=== PATIENT | female | born 1985 | race Caucasian/White ===

== ENCOUNTER 2021-09-06 17:15 | Emergency (ER) | payer SELFPAY ==
--- NOTE | 2021-09-06 18:17 | RAD REPORT ---
EXAM DESCRIPTION: RAD - Thoracic Spine Ap/Lat - 09/06/2021 6:04 pm CLINICAL HISTORY: PAIN COMPARISON: No comparisonsNo comparisons FINDINGS: No acute fracture. No malalignment. No significant focal degenerative changes. IMPRESSION: No acute osseous abnormality involving the thoracic spine.
--- NOTE | 2021-09-06 18:17 | RAD REPORT ---
EXAM DESCRIPTION: RAD - Lumbar Spine 3 Views - 09/06/2021 6:03 pm CLINICAL HISTORY: PAIN COMPARISON: <Comparisons> FINDINGS: No acute fracture. No malalignment. No significant focal degenerative changes. IMPRESSION: No acute osseous abnormality involving the lumbar spine.
[2021-09-06] MEDS ORDERED: KETOROLAC 30 MG/ML INJ ONE (19:07)
[2021-09-06] MEDS ORDERED: CYCLOBENZAPRINE 10 MG TAB ONE (19:07)
--- NOTE | 2021-09-06 19:13 | ER ---
Nurse's Notes [facility] Name: Gogo Mendez Age: 36 yrs Sex: Female : 1985 Arrival Date: 09/06/2021 Time: 17:16 Bed 10 Private MD: Diagnosis: Sprain of ligaments of thoracic spine;Sprain of ligaments of lumbar spine Presentation: 09/06 17:36 Chief complaint: Patient states: "4 days ago my daughter fell and I turned around real ab2 fast and I fell too." Pt c/o back pain. Pt states she did hit her head and is unsure of LOC. Coronavirus screen: Vaccine status: Patient reports being unvaccinated. Client denies travel out of the [place] in the last 14 days. At this time, the client does not indicate any symptoms associated with coronavirus-19. Ebola Screen: Patient negative for fever greater than or equal to 101.5 degrees Fahrenheit, and additional compatible Ebola Virus Disease symptoms Patient denies exposure to infectious person. Patient denies travel to an Ebola-affected area in the 21 days before illness onset. No symptoms or risks identified at this time. Initial Sepsis Screen: Does the patient meet any 2 criteria? No. Patient's initial sepsis screen is negative. Does the patient have a suspected source of infection? No. Patient's initial sepsis screen is negative. Risk Assessment: Do you want to hurt yourself or someone else? Patient reports no desire to harm self or others. Onset of symptoms is unknown. 17:36 Method Of Arrival: Wheelchair ab2 17:36 Acuity: JOEY 4 ab2 Triage Assessment: 17:39 General: Appears in no apparent distress. uncomfortable, Behavior is calm, cooperative, ab2 appropriate for age. Pain: Complains of pain in back Pain currently is 10 out of 10 on a pain scale. Neuro: Level of Consciousness is awake, alert, obeys commands, Oriented to person, place, time, situation, Appropriate for age [place]ductor [place] are equal bilaterally Moves all extremities. Speech is normal. Cardiovascular: No deficits noted. Respiratory: Airway is patent Respiratory effort is even, unlabored, Respiratory pattern is regular, symmetrical. GI: No deficits noted. Musculoskeletal: Reports pain in back. Historical: - Allergies: 17:39 No Known Allergies; ab2 - PMHx: 17:39 None; ab2 - PSHx: 17:39 None; ab2 - Immunization history:: Adult Immunizations up to date. - Social history:: Smoking status: Reported history of juuling and/or vaping. Screenin:22 Abuse screen: Denies threats or abuse. Denies injuries from another. Nutritional ab2 screening: No deficits noted. Tuberculosis screening: No symptoms or risk factors identified. Fall Risk None identified. Vital Signs: 17:36 BP 133 / 91; Pulse 88; Resp 17; Temp 98.1; Pulse Ox 99% on R/A; Weight 116.12 kg; ab2 Height 5 ft. 6 in. (167.64 cm); Pain 10/10; 19:23 BP 117 / 79; Pulse 81; Resp 17; Pulse Ox 99% on R/A; ab2 17:36 Body Mass Index 41.32 (116.12 kg, 167.64 cm) ab2 ED Course: 17:16 Patient arrived in ED. am2 17:17 Hannah Frederick FNP is PHCP. jh7 17:17 Noman Sarmiento MD is Attending Physician. jh7 17:39 Triage completed. ab2 17:40 Arm band placed on left wrist. ab2 17:42 Hannah Frederick FNP is PHCP. jh7 18:05 XRAY Lumbar Spine (3 Views) In Process Unspecified. EDMS 18:05 XRAY Thoracic Spine (Ap/lat) In Process Unspecified. EDMS 18:42 Nadia Siu, RN is Primary Nurse. iw 19:22 No provider procedures requiring assistance completed. Patient did not have IV access ab2 during this emergency room visit. 19:23 Patient has correct armband on for positive identification. ab2 Administered Medications: 19:06 Drug: Ketorolac 60 mg Route: IM; Site: left vastus lateralis; ab2 19:06 Drug: Flexeril (cyclobenzaprine) 10 mg Route: PO; ab2 Outcome: 19:12 Discharge ordered by . jh7 19:22 Discharged to home ambulatory. ab2 19:22 Condition: good 19:22 Discharge instructions given to patient, Instructed on discharge instructions, follow up and referral plans. medication usage, Demonstrated understanding of instructions, follow-up care, medications, Prescriptions given X 2. 19:23 Patient left the ED. ab2 Signatures: Dispatcher [employer] Nadia Onofre, RN Di Shepherd am2 John Perez ab2 Hannah Frederick, ELECTRICAL LINEWORKER ELECTRICAL LINEWORKER jh7
--- NOTE | 2021-09-06 19:13 | EDPHYS ---
Physician Documentation [facility] Name: Gogo Mendez Age: 36 yrs Sex: Female : 1985 Arrival Date: 09/06/2021 Time: 17:16 Bed 10 Private MD: HANNAH Physician Noman Sarmiento HPI: 09/06 19:40 This 36 yrs old Female presents to ER via Wheelchair with complaints of Fall Injury, jh7 Back Pain. 19:41 Onset: The symptoms/episode began/occurred 4 day(s) ago. Associated injuries: The jh7 patient sustained upper back injury, pain, pain with movement, injury to the low back, pain, pain with movement. Patient presents with back pain after a fall while holding her daughter 4 days ago. The patient reports that she slipped, and that her back twisted as she fell. States that she hit the side of her head, but has no dizziness, headache, syncope, or any neurological symptoms.. Historical: - Allergies: 17:39 No Known Allergies; ab2 - PMHx: 17:39 None; ab2 - PSHx: 17:39 None; ab2 - Immunization history:: Adult Immunizations up to date. - Social history:: Smoking status: Reported history of juuling and/or vaping. ROS: 19:41 Constitutional: Negative for fever, chills, and weight loss, Cardiovascular: Negative jh7 for chest pain, palpitations, and edema, Respiratory: Negative for shortness of breath, cough, wheezing, and pleuritic chest pain, Abdomen/GI: Negative for abdominal pain, nausea, vomiting, diarrhea, and constipation, Skin: Negative for injury, rash, and discoloration, Neuro: Negative for headache, weakness, numbness, tingling, and seizure. 19:41 Back: Positive for injury or acute deformity, pain at rest, pain with movement, of the thoracic area, lumbar area, left low back, left mid back, right mid back and right low back. Exam: 19:41 Constitutional: This is a well developed, well nourished patient who is awake, alert, jh7 and in no acute distress. Head/Face: Normocephalic, atraumatic. Neck: Trachea midline, no thyromegaly or masses palpated, and no cervical lymphadenopathy. Supple, full range of motion without nuchal rigidity, or vertebral point tenderness. No Meningismus. Cardiovascular: Regular rate and rhythm with a normal S1 and S2. No gallops, murmurs, or rubs. Normal PMI, no JVD. No pulse deficits. Respiratory: Lungs have equal breath sounds bilaterally, clear to auscultation and percussion. No rales, rhonchi or wheezes noted. No increased work of breathing, no retractions or nasal flaring. Skin: Warm, dry with normal turgor. Normal color with no rashes, no lesions, and no evidence of cellulitis. MS/ Extremity: Pulses equal, no cyanosis. Neurovascular intact. Full, normal range of motion. Neuro: Awake and alert, GCS 15, oriented to person, place, time, and situation. Motor strength 5/5 in all extremities. Sensory grossly intact. Normal gait. 19:41 Back: pain, that is mild, of the lumbar area, left low back, left mid back, right mid back and right low back, ROM is painful, with flexion. Vital Signs: 17:36 BP 133 / 91; Pulse 88; Resp 17; Temp 98.1; Pulse Ox 99% on R/A; Weight 116.12 kg; ab2 Height 5 ft. 6 in. (167.64 cm); Pain 10/10; 19:23 BP 117 / 79; Pulse 81; Resp 17; Pulse Ox 99% on R/A; ab2 17:36 Body Mass Index 41.32 (116.12 kg, 167.64 cm) ab2 MDM: 17:42 Patient medically screened. [facility] 19:41 Differential diagnosis: sprain, strain. Data reviewed: vital signs, nurses notes. Data [facility] interpreted: Pulse oximetry: is 99 %. Interpretation: normal. Counseling: I had a detailed discussion with the patient and/or guardian regarding: the historical points, exam findings, and any diagnostic results supporting the discharge/admit diagnosis, radiology results, to return to the emergency department if symptoms worsen or persist or if there are any questions or concerns that arise at home. ED course: The patient remained stable throughout her ER visit. Her x-rays were negative for fracture or any other acute changes. Radiology results were discussed with the patient. She was advised to alternate heat and ice at home, take medication as prescribed, and rest as needed. She was also advised not to take the muscle relaxer before performing any events which require alertness. If the patient's pain worsens or she develops any new concerning symptoms, she is to return to the ER. The patient understands the plan of care.. 09/06 17:40 Order name: XRAY Lumbar Spine (3 Views); Complete Time: 19:46 jh7 09/06 17:40 Order name: XRAY Thoracic Spine (Ap/lat); Complete Time: 19:46 jh7 Administered Medications: 19:06 Drug: Ketorolac 60 mg Route: IM; Site: left vastus lateralis; ab2 19:06 Drug: Flexeril (cyclobenzaprine) 10 mg Route: PO; ab2 Disposition Summary: 09/06/21 19:12 Discharge Ordered Location: Home [facility] Problem: new [facility] Symptoms: have improved [facility] Condition: Stable [facility] Diagnosis - Sprain of ligaments of thoracic spine jh7 - Sprain of ligaments of lumbar spine [facility] Followup: [facility] - With: Private Physician - When: 2 - 3 days - Reason: Recheck today's complaints Discharge Instructions: - Discharge Summary Sheet [facility] - Acute Back Pain, Adult [facility] Forms: - Medication Reconciliation Form [facility] - Thank You Letter [facility] - Antibiotic Education [facility] - Prescription Opioid Use [facility] Prescriptions: - Naprosyn 500 mg Oral Tablet - take 1 tablet by ORAL route 2 times per day take with food; 30 tablet; Refills: [facility] 0, Product Selection Permitted - Cyclobenzaprine 5 mg Oral Tablet - take 1 tablet by ORAL route 3 times per day As needed; 15 tablet; Refills: 0, 7 Product Selection Permitted Signatures: Dispatcher [employer] John Onofre ab2 Hannah Frederick FNP [place] [id number]
[2021-09-06 19:58] VITALS: TEMP 98.1; O2SAT 99
[2021-09-06 20:00] VITALS: BP 117/79
== END 2021-09-06 19:23 | disposition home or self-care (01) ==
LOC: ER 17:15
DX: S33.5XXA Sprain of ligaments of lumbar spine, initial encounter (principal); S23.3XXA Sprain of ligaments of thoracic spine, initial encounter; W18.30XA Fall on same level, unspecified, initial encounter
CPT/HCPCS: 72070; 72100; 96372; 99283